=== PATIENT | female | born 1945 | race Caucasian/White ===

== ENCOUNTER 2017-02-19 13:06 | Outpatient (CLI) | payer MEDICARE, OTHER ==
[2013-11-12 10:04] VITALS: BP 131/93
[2017-02-19 13:18] LABS: BASOPHILS % 0.6 (0.0-1.5); EOSINOPHILS % 7.8 % (0.0-6.8); MEAN CORPUSCULAR VOLUME 96.1 fl (80.0-100.0); MONOCYTES % 5.4 % (0.0-11.0); NEUTROPHILS # 2.3 # k/uL (1.4-7.7)
[2017-02-19 13:43] LABS: eGFR (African) > 60; eGFR (Non-African) > 60
== END 2017-02-19 13:07 ==
LOC: LAB 13:06
PROVIDERS: ATTEND Specialist
DX: Z79.899 Other long term (current) drug therapy (principal)
CPT/HCPCS: 36415; 80053; 85025

== ENCOUNTER 2017-08-13 07:51 | Outpatient (CLI) | payer MEDICARE, OTHER ==
[2013-11-12 10:04] VITALS: BP 131/93
[2017-08-13 08:24] LABS: BASOPHILS % 0.8 (0.0-1.5); EOSINOPHILS % 5.5 % (0.0-6.8); MEAN CORPUSCULAR HEMOGLOBIN 31.1 pg (28.0-34.0); MEAN CORPUSCULAR VOLUME 97.1 fl (80.0-100.0); MONOCYTES % 4.1 % (0.0-11.0)
[2017-08-13 08:43] LABS: eGFR (African) > 60; eGFR (Non-African) > 60
== END 2017-08-13 07:53 ==
LOC: LAB 07:51
PROVIDERS: ATTEND Specialist
DX: Z79.899 Other long term (current) drug therapy (principal)
CPT/HCPCS: 36415; 80053; 85025

== ENCOUNTER 2019-04-28 09:17 | Day surgery (SDC) | payer MEDICARE, OTHER ==
[2013-11-12 10:04] VITALS: BP 131/93
[~2019-04-28 09:17] MED LIST: LACTATED RINGERS 1,000 ML IV.SOLN IV ONE; LIDOCAINE HCL 2% PF 100MG/5ML VIAL IJ ONE; PROPOFOL 200 MG/20 ML VIAL IV ONE
--- NOTE | 2019-04-30 13:33 | GI Report ---
DATE OF PROCEDURE: 04/28/2019 REFERRING PHYSICIAN: ROSANNA Valderrama SURGEON: UTE ARANA M.D., [place] PROCEDURE PERFORMED: Colonoscopy. INDICATION FOR PROCEDURE: The patient is a 74-year-old woman who had a polyp maybe 10 years ago. She has some trouble with constipation. No bleeding. Her sister has had liver cancer. No one has had colon cancer that she is aware of. The patient states the prep was slow in acting today. PROCEDURE MEDICATION: As per Anesthesia. DESCRIPTION OF PROCEDURE: The Olympus video colonoscope was advanced through the rectum. The prep was actually fair to poor. She has fairly severe diverticular disease in the sigmoid, descending colon. With the colonoscopy we used lavage and finally worked our way with nurse compression to get to the base of the cecum. The appendiceal orifice was seen amongst the stool. The ileocecal valve looks normal. On slow withdrawal, the cecum, ascending colon and transverse colon, no obvious intraluminal lesions were noted though small polyps could be missed because of the poor prep. Descending colon and sigmoid: Extensive diverticular disease, No obvious intraluminal lesions, but again small polyps could be missed with prep this poor. Retroflexion in the rectum shows hemorrhoids. The patient tolerated the procedure well. FINDINGS: 1. Atonic redundant colon. 2. Moderate severe diverticular disease of sigmoid, descending colon. RECOMMENDATIONS: 1. Would increase fiber in the diet like fruits, vegetables, Benefiber and MiraLAX daily. 2. Would relook at her colon again within 10 years, possibly sooner because the prep was poor. UTE ARANA M.D., [email or web address]. NUPUR/pino Job#: [id number] Cc: ROSANNA Valderrama [address] [address] [facility]
== END 2019-04-28 12:32 | disposition home or self-care (01) ==
LOC: OPSURG 09:17
PROVIDERS: ATTEND Internal Medicine Gastroenterology
DX: K59.00 Constipation, unspecified (principal); K57.30 Diverticulosis of large intestine without perforation or abscess without bleeding; K64.8 Other hemorrhoids; K59.8 Other specified functional intestinal disorders; Z86.010 Personal history of colon polyps; Z80.0 Family history of malignant neoplasm of digestive organs
CPT/HCPCS: 45378; J2001; J2704; J7120

== ENCOUNTER 2019-07-10 08:11 | Outpatient (CLI) | payer MEDICARE, OTHER ==
[2013-11-12 10:04] VITALS: BP 131/93
[2019-07-10 08:22] LABS: BASOPHILS % 0.3 % (0.0-1.5); NEUTROPHILS # 2.8 # k/uL (1.4-7.7)
== END 2019-07-10 08:16 ==
LOC: LAB 08:11
PROVIDERS: ATTEND Nurse Practitioner
DX: G50.0 Trigeminal neuralgia (principal); Z79.899 Other long term (current) drug therapy
CPT/HCPCS: 36415; 85025